=== PATIENT | male | born 1975 | race Two or more races ===

== ENCOUNTER 2018-05-04 05:44 | Emergency (ER) | payer SELFPAY ==
[~2018-05-04] VITALS: Ht 175.3 cm; Wt 81.6 kg
[2018-05-04 05:55] VITALS: BP 127/71
[2018-05-04] MEDS ORDERED: KETOROLAC TROMETH 60MG/2ML VIAL IM ONE (06:45)
== END 2018-05-04 07:53 | disposition home or self-care (01) ==
LOC: EDBD 05:44 → ER 05:51
DX: M54.5 Low back pain (principal); M25.572 Pain in left ankle and joints of left foot; V43.52XA Car driver injured in collision with other type car in traffic accident, initial encounter; Y93.89 Activity, other specified; Y99.8 Other external cause status; Y92.410 Unspecified street and highway as the place of occurrence of the external cause
CPT/HCPCS: 72131; 73610; 96372; 99284; J1885